=== PATIENT | female | born 1960 | race Caucasian/White ===

== ENCOUNTER 2017-01-31 18:38 | Emergency (ER) ==
[2017-01-31] MEDS ORDERED: LABETALOL IV ONE (19:07)
[2017-01-31] MEDS ORDERED: CATAPRES PO ONE (19:37)
[2017-01-31 19:53] LABS: MANUAL DIFF NEEDED? NO
[2017-01-31 19:58] LABS: BASO% 0.6 % (0.0-0.8); EOS# 0.23 X1000 (0.0-0.7); EOS% 1.9 % (0.0-10.0); HEMATOCRIT 38.5 % (37.0-47.0); HEMOGLOBIN 12.6 g/dL (12.0-16.0); IMM GRAN# 0.03 X1000 (0.0-0.04); IMM GRAN% 0.2 % (0.0-0.5); LYMPH# 2.79 X1000 (1.2-3.4); LYMPH% 22.6 % (20.5-51.1); MCH 27.6 PG (27-31); MCHC 32.7 g/dL (33-37); MCV 84.4 FL (81-99); MONO# 0.78 X1000 (0.11-0.59); MONO% 6.3 % (1.7-9.3); MPV 9.5 FL (7.4-10.4); NEUT% 68.4 % (42.2-75.2); PLT 272 X1000 (130-400); RBC 4.56 XMIL (4.2-5.4)
--- NOTE | 2017-01-31 20:07 | PROVIDER DOCUMENTATION ---
HPI-General Adult - General Chief Complaint: B/P Problems Stated Complaint: HIGH BP Time Seen by Provider: 01/31/17 19:05 Source: patient Allergies/Adverse Reactions: Patient Allergies Allergy/AdvReac Type Severity Reaction Status Date / Time No Known Allergies Allergy Verified 01/31/17 18:57 Home Medications: Home Medication List Medication Instructions Recorded Confirmed Last Taken Type Clonazepam [Klonopin] 1 mg PO HS 09/14/14 01/31/17 01/03/15 07:00 History Trazodone [Desyrel] 50 mg PO QHS 09/14/14 01/31/17 01/03/15 07:00 History Famotidine [Pepcid] 20 mg PO DAILY #30 tablet 01/03/15 01/31/17 Unknown Rx Metoclopramide [Reglan] 10 mg PO Q6HR 01/31/17 01/31/17 Unknown History Telmisartan [Micardis] 20 mg PO DAILY 01/31/17 01/31/17 01/30/17 History - History of Present Illness -Gen Adult Nature of Presenting Problems: 56 Y/O F presents to ED with HTN. Pt c/o of HTN, with dizziness that began today and doesn't feel well. Went to Dr holguin recently, was taken of lisinopril 20, switched to generic brand, states placed on Myocardis 80. States Lisinopril caused N. Location of Pain/Injury: reports: generalized Pain Radiation: reports: no radiation Quality of Pain: reports: pressure Severity: reports: moderate, severe Onset/Duration: reports: this morning Timing: reports: still present Context/Activities at Onset: reports: light activity Modifying Factors: improves with: lying down. worse with: movement Associated Symptoms: reports: dizziness, nausea. denies: diarrhea, fever/chills , shortness of breath, vomiting Review of Systems - Adult - REVIEW OF SYSTEMS - ADULT Constitutional: denies: chills, fever Eyes: reports: no symptoms reported Ears, Nose, Mouth & Throat: reports: no symptoms reported Cardiovascular: denies: chest pain Respiratory: denies: shortness of breath Gastrointestinal: reports: nausea. denies: abdominal pain, diarrhea, vomiting Genitourinary: reports: no symptoms reported Musculoskeletal: reports: no symptoms reported Integumentary: reports: no symptoms reported Neurological: reports: dizziness/vertigo. denies: loss of balance Psychiatric: reports: no symptoms reported Endocrine: reports: no symptoms reported Hematologic/Lymphatic: reports: no symptoms reported Allergic/Immunologic: reports: no symptoms reported All Other Systems: Reviewed and Negative Past History - Adult - PAST MEDICAL HISTORY-ADULT Review of Records: reports: Old Records Reviewed, Nursing Assessment Review, Medications Reviewed, Social history reviewed & non-contributory. Major Childhood Illnesses: reports: denies history Cardiovascular: reports: HTN Respiratory: reports: COPD, sleep apnea Gastrointestinal: reports: GERD, ulcer Genitourinary: reports: denies history Musculoskeletal: reports: denies history Neurological: reports: denies history Psychiatric: reports: anxiety Endocrine/Immune: reports: thyroid disorder Other Conditions: reports: denies history - PRIOR SURGERIES/PROCEDURES Surgical/Procedure History: reports: appendectomy, hysterectomy, back/neck - IMMUNIZATION STATUS Childhood Immunizations: See Nurse Assessment Flu Vaccine: See Nurse Assessment - FAMILY HISTORY Family History: reviewed, not pertinent Physical Exam-General - CONSTITUTIONAL General Appearance: alert, no apparent distress, obese. negative: appears well - EYES Eyes: PERRL/EOMI, pink conjunctivae, fundi clear, no AV nicking - HEAD, EARS, NOSE, MOUTH & THROAT HENMT: normocephalic/atraumatic, moist mucous membranes, normal ENT inspection, TMs normal, pharynx normal - NECK Neck: non-tender, full range of motion, supple, normal inspection - RESPIRATORY Respiratory: chest non-tender, lungs clear, normal breath sounds - CARDIOVASCULAR Cardiovascular: normal peripheral pulses, regular rate, rhythm - GASTROINTESTINAL (ABDOMEN) Abdominal Exam: normal bowel sounds, non tender, soft - LYMPHATIC Lymphatic: no adenopathy - MUSCULOSKELETAL Back Exam: normal inspection, no CVA tenderness, no vertebral tenderness Extremity: normal range of motion, non-tender, normal gait - SKIN Integumentary: normal color, normal turgor, warm/dry - NEUROLOGIC Neurologic: other (dizziness with movement) - PSYCHIATRIC Psych/Mental Status: normal mood/affect, normal thought content, normal thought process, oriented x 3 Progress - PLAN OF CARE/RESULTS Progress/Plan/Lab Results: Vital Signs - 24 hr 01/31/17 01/31/17 01/31/17 18:54 19:32 20:49 Temperature 97.7 F Pulse Rate 86 84 72 Respiratory 18 16 18 Rate Blood Pressure 198/101 186/108 140/95 O2 Sat by Pulse 97 97 98 Oximetry Orders Category Date Time Status Cardiac Monitoring DIRECTED Care 01/31/17 19:06 Active Oxygen Therapy- ED Nursing DIRECTED Care 01/31/17 19:06 Active Saline Loc NOW Care 01/31/17 19:06 Active CHEST-2 VIEWS [RAD] Stat Exams 01/31/17 19:06 Taken HEAD W/O CONTRAST [CT] Stat Exams 01/31/17 19:07 Taken CBC WITH ELECTRONIC DIFF [HEME] Stat Lab 01/31/17 19:20 Completed CK PROFILE [SP CHEM] Stat Lab 01/31/17 19:20 Completed COMPREHENSIVE METABOLIC PANEL [CHEM] Stat Lab 01/31/17 19:20 Completed MAGNESIUM [CHEM] Stat Lab 01/31/17 19:20 Completed PRO B-NATRIURETIC PEPTIDE Stat Lab 01/31/17 19:[address] Com[address]IME WITH INR PL [COAG] Stat Lab 01/31/17 19:[address] [COAG] Stat Lab 01/31/17 19:20 Completed TROPONIN T Stat Lab 01/31/17 19:20 Completed Clonidine [Catapres] Med 01/31/17 19:37 Discontinued 0.2 mg PO NOW ONE EKG [EKG] Stat Ther 01/31/17 19:06 Draft Laboratory Tests 01/31/17 01/31/17 01/31/17 19:20 19:20 19:20 WBC RBC Hgb Hct MCV MCH MCHC RDW Std Deviation Plt Count MPV Immature Gran % (Auto) Neut % (Auto) Lymph % (Auto) Harrison % (Auto) Eos % (Auto) Baso % (Auto) Immature Gran # (Auto) Neut # (Auto) Lymph # (Auto) Harrison # (Auto) Eos # (Auto) Baso # (Auto) PT INR APTT (Factor Assay) Sodium 136 Potassium 3.3 L Chloride 100 Carbon Dioxide 24 L Anion Gap 12 BUN 14 Creatinine 0.9 Estimated GFR/1.73 m2 > 60 BUN/Creatinine Ratio 16 Glucose 101 Calculated Osmolality 273 Calcium 9.4 Magnesium 2.1 Total Bilirubin 0.30 AST 20 ALT 23 Alkaline Phosphatase 99 Creatine Kinase 110 Troponin T < 0.010 Ecu-Q-Jqtxnjikvvo Pept 78 Total Protein 7.5 Albumin 4.4 Globulin 3.0 Albumin/Globulin Ratio 1.0 01/31/17 01/31/17 19:20 19:20 WBC 12.36 H RBC 4.56 Hgb 12.6 Hct 38.5 MCV 84.4 MCH 27.6 MCHC 32.7 L RDW Std Deviation 13.2 Plt Count 272 MPV 9.5 Immature Gran % (Auto) 0.2 Neut % (Auto) 68.4 Lymph % (Auto) 22.6 Harrison % (Auto) 6.3 Eos % (Auto) 1.9 Baso % (Auto) 0.6 Immature Gran # (Auto) 0.03 Neut # (Auto) 8.45 H Lymph # (Auto) 2.79 Harrison # (Auto) 0.78 H Eos # (Auto) 0.23 Baso # (Auto) 0.08 PT 12.9 INR 0.94 APTT (Factor Assay) 28.8 Sodium Potassium Chloride Carbon Dioxide Anion Gap BUN Creatinine Estimated GFR/1.73 m2 BUN/Creatinine Ratio Glucose Calculated Osmolality Calcium Magnesium Total Bilirubin AST ALT Alkaline Phosphatase Creatine Kinase Troponin T Qwf-M-Fjzxpfscyvm Pept Total Protein Albumin Globulin Albumin/Globulin Ratio - EKG 1 Time of EKG reading by physician:: 19:47 EKG Read and Signed by:: [place] EKG Interpretation (*Must complete 3 of following elements*): Normal Rate: 79 Rhythm: NSR Comments: Normal ECG - CT/MRI 1 CT Study: Head Impression: Normal CT Results: NAD Departure - Departure Time of Disposition Order: 21:59 DIAGNOSIS: HTN (hypertension) Qualifiers: Hypertension type: unspecified secondary hypertension Qualified Code(s): I15.9 - Secondary hypertension, unspecified; I15 - Secondary hypertension Disposition: HOME 01 Certified Medical Emergency: Emergent Condition: Stable Additional Instructions: ED Follow Up Instructions: You have been treated by a care provider in the Emergency Department. These instructions are being provided to you so you can have an understanding of how to care for yourself upon discharge. Upon discharge from the Emergency Department, you are responsible for making arrangements for follow-up care by a physician of your choice. Take all prescribed medications as directed. Return to the Emergency Department immediately for any new or worsening symptoms. You may call the Physician Referral phone number at [phone] to obtain a list of Physicians who are taking new patients. Attestation - Scribe Verification/Attestation Scribe:: Becki Nova Acting as Scribe for:: [place] Scribe documention review:: This chart was documented by a scribe and accurately reflects the service the provider performed and the decisions made by the provider.
[2017-01-31 20:10] LABS: INR 0.94 (0.86-1.15); PROTIME 12.9 Seconds (12.1-15.5)
[2017-01-31 20:11] LABS: PTT PL 28.8 Seconds (22.6-43.9)
--- NOTE | 2017-01-31 20:11 | EKG Report ---
Test Performed on : 01/31/2017 7:47:14 PM Test Reason : CHEST PAIN Blood Pressure : / mmHG Vent. Rate : 079 BPM Atrial Rate : 079 BPM P-R Int : 148 ms QRS Dur : 070 ms QT Int : 370 ms P-R-T Axes : 055 067 059 degrees QTc Int : 424 ms Normal sinus rhythm. Normal ECG When compared with ECG of 14-SEP-2014 18:09, No significant change was found Unconfirmed Result
[2017-01-31 20:25] LABS: AGAP 12; ALBUMIN 4.4 g/dL (3.5-5.0); ALKALINE PHOSPHATASE 99 U/L (32-104); BUN 14 mg/dL (8-22); CALCIUM 9.4 mg/dL (8.8-10.2); CHLORIDE 100 mmol/L (98-107); CK PROFILE 110 U/L (24-173); COSMO 273; GOT 20 U/L (10-30); GPT 23 U/L (10-36); MAGNESIUM 2.1 mg/dL (1.5-2.7); POTASSIUM 3.3 mmol/L (3.5-5.1); SODIUM 136 mmol/L (136-145); TCO2 24 mmol/L (25-35); TOTAL PROTEIN 7.5 g/dL (6.3-8.3)
[2017-01-31 22:10] VITALS: BP 143/83
--- NOTE | 2017-02-01 10:58 | Diag Imaging Result Document ---
PROCEDURE NAME: CHEST-2 VIEWS - 01/31/2017 CHEST X-RAY, 2 VIEWS: COMPARISON: 09/14/2014. FINDINGS: The lungs are normally expanded and clear. Heart size and mediastinal contours are normal. No pneumothorax or pleural effusion. IMPRESSION: Negative exam.
--- NOTE | 2017-02-01 10:59 | Diag Imaging Result Document ---
PROCEDURE NAME: HEAD W/O CONTRAST - 01/31/[address]: A CT dose reduction protocol was used. COMPARISON: None. FINDINGS: The ventricles and sulci are normal in size and contour. There is no mass, hemorrhage, or evidence of acute ischemia. The bony calvaria is intact. The visualized paranasal sinuses and mastoid air cells are clear. IMPRESSION: Negative head CT. MTDD
== END 2017-01-31 22:10 | disposition home or self-care (01) ==
LOC: P.ED 18:38
DX: I15.9 Secondary hypertension, unspecified (principal); R42 Dizziness and giddiness; R11.0 Nausea; I10 Essential (primary) hypertension; J44.9 Chronic obstructive pulmonary disease, unspecified; K21.9 Gastro-esophageal reflux disease without esophagitis; E07.9 Disorder of thyroid, unspecified; E66.9 Obesity, unspecified; Z79.899 Other long term (current) drug therapy; F41.9 Anxiety disorder, unspecified
CPT/HCPCS: 70450; 71020; 80053; 82550; 83735; 83880; 84484; 85025; 85610; 85730; 93005